=== PATIENT | male | born 1960 | race Caucasian/White ===

== ENCOUNTER 2021-12-16 10:56 | Inpatient (IN) | payer SELFPAY ==
[2021-12-16 11:56] LABS: CHLORIDE,CL 94 mEq/L (98-106); SODIUM,NA 133 mEq/L (136-145)
[2021-12-16 12:07] LABS: ESTIMATED GFR 87 mL/min (>=60)
[2021-12-16] MEDS ORDERED: Iopamidol 755 Mg/ML 100 ML Bottle IVPUSH ONE (13:46)
[2021-12-16] MEDS ORDERED: Barium Sulfate Oral Susp 450 ML Bottle PO ONE (13:47)
[2021-12-16] MEDS ORDERED: Sodium Chloride 0.9% 1,000 ML IV SCH (15:30)
[2021-12-16] MEDS ORDERED: cefTRIAXone 1 GM Vial IVPUSH SCH (16:00)
[2021-12-16] MEDS ORDERED: HYDROmorphone 1 MG/ML Syringe IVPUSH ONE (16:31)
[2021-12-16] MEDS: Nicotine 14 MG/24 Hr Patch TRDERM SCH (16:58)
[2021-12-16] MEDS: Acetaminophen/HYDROcodone 325-5 MG Tab PO PRN (20:08)
[2021-12-16] MEDS ORDERED: Ketorolac 30 MG/ML SDV IVPUSH ONE (21:44)
[2021-12-16] MEDS ORDERED: cefTRIAXone 1 GM Vial IVPUSH ONE (22:05)
[2021-12-17] MEDS ORDERED: Sodium Chloride 0.9% 1,000 ML IV SCH (00:45)
[2021-12-17] MEDS: Acetaminophen/HYDROcodone 325-5 MG Tab PO PRN ×2 (02:42→08:25)
[2021-12-17] MEDS ORDERED: HYDROmorphone 1 MG/ML Syringe IVPUSH ONE (03:25)
[2021-12-17] MEDS ORDERED: HYDROmorphone 1 MG/ML Syringe ONE ×2 (04:08→16:34)
[2021-12-17] MEDS: Nicotine 14 MG/24 Hr Patch TRDERM SCH (08:25)
[2021-12-17] MEDS ORDERED: HYDROmorphone 0.5 MG/0.5 ML Syringe IVPUSH ONE (08:58)
[2021-12-17] MEDS ORDERED: VANCOmycin 1 GM/200 ML 1 GM in Premix Bag 1 BAG IV STA (09:17)
[2021-12-17] MEDS ORDERED: fentaNYL 50 MCG/ML SDV ONE (16:35)
== END 2021-12-17 10:20 | DRG 603 ==
LOC: CC.MS 10:56 → CC.FCMC 10:56 → CC.MS 13:50 → UNDOADMIN 13:50 → CC.MS 16:47 → UNDODISIN 12-17 10:20
PROVIDERS: ADMIT Physician Assistant Medical; ATTEND Family Medicine
DX: L03.113 Cellulitis of right upper limb (principal); R78.81 Bacteremia; I10 Essential (primary) hypertension; E78.5 Hyperlipidemia, unspecified; R63.4 Abnormal weight loss; L03.031 Cellulitis of right toe; R31.9 Hematuria, unspecified; R82.71 Bacteriuria; M10.9 Gout, unspecified; G89.29 Other chronic pain; F17.210 Nicotine dependence, cigarettes, uncomplicated; M54.59 Other low back pain; E86.0 Dehydration; Z20.822 Contact with and (suspected) exposure to COVID-19; Z79.899 Other long term (current) drug therapy; Z90.49 Acquired absence of other specified parts of digestive tract
CPT/HCPCS: 36415; 71260; 74177; 80053; 81001; 84153; 84550; 85025; 85651; 86140; 87040; 87077; 87186; 99223; 99239; A9270-GY; J0696; J1170; J1885; J3370; J7030; Q9967; U0002

== ENCOUNTER 2022-01-11 11:40 | Inpatient (IN) | payer MEDICAID ==
[2022-01-11] MEDS ORDERED: Ondansetron 4 MG Tab.DIS PO PRN (15:30)
[2022-01-11] MEDS ORDERED: Acetaminophen 325 MG Tab PO PRN (15:30)
[2022-01-11] MEDS: Cyclobenzaprine 10 MG Tab PO PRN (16:33)
[2022-01-11] MEDS: oxyCODONE 5 MG Tab PO PRN ×2 (16:37→20:35)
[2022-01-11] MEDS: Calcium Carbonate/Vitamin D3 1250 MG-5 MCG Tab PO SCH (16:46)
[2022-01-11] MEDS: ceFAZolin 1 GM Vial IVPUSH SCH (16:46)
[2022-01-11] MEDS: Carvedilol 12.5 MG Tab PO SCH (16:52)
[2022-01-11] MEDS: ALPRAZolam 0.25 MG Tab PO PRN (16:52)
[2022-01-11] MEDS ORDERED: Simvastatin 20 MG Tab PO SCH (20:00)
[2022-01-11] MEDS: Enoxaparin 40 MG/0.4 ML Syringe SUBCUT SCH (20:29)
[2022-01-12] MEDS: oxyCODONE 5 MG Tab PO PRN ×5 (01:33→23:46)
[2022-01-12] MEDS: ALPRAZolam 0.25 MG Tab PO PRN (01:34)
[2022-01-12] MEDS: ceFAZolin 1 GM Vial IVPUSH SCH ×2 (01:35→08:18)
[2022-01-12] MEDS: Cyclobenzaprine 10 MG Tab PO PRN (05:48)
[2022-01-12] MEDS: Nicotine 21 MG/24 Hr Patch TRDERM SCH (08:14)
[2022-01-12] MEDS: Lisinopril 20 MG Tab PO SCH (08:14)
[2022-01-12] MEDS: Calcium Carbonate/Vitamin D3 1250 MG-5 MCG Tab PO SCH ×2 (08:15→16:54)
[2022-01-12] MEDS: Citalopram 10 MG Tab PO SCH (08:15)
[2022-01-12] MEDS: Cholecalciferol (Vitamin D3) 25 MCG Tab PO SCH (08:16)
[2022-01-12] MEDS: amLODIPine 10 MG Tab PO SCH (08:16)
[2022-01-12] MEDS: Carvedilol 12.5 MG Tab PO SCH ×2 (08:16→17:07)
[2022-01-12] MEDS: Voriconazole 200 MG Tab PO SCH ×2 (11:13→19:58)
[2022-01-12] MEDS: LORazepam 0.5 MG Tab PO SCH ×2 (11:15→18:50)
[2022-01-12] MEDS: ceFAZolin 2 GM Vial IVPUSH SCH ×2 (16:51→23:33)
[2022-01-12] MEDS: Enoxaparin 40 MG/0.4 ML Syringe SUBCUT SCH (19:50)
[2022-01-12] MEDS: atorvaSTATin 20 MG Tab PO SCH (19:51)
[2022-01-13] MEDS: LORazepam 0.5 MG Tab PO SCH ×3 (03:45→18:37)
[2022-01-13] MEDS: Cyclobenzaprine 10 MG Tab PO PRN ×2 (03:52→17:25)
[2022-01-13] MEDS: oxyCODONE 5 MG Tab PO PRN ×2 (07:52→14:55)
[2022-01-13] MEDS: Lisinopril 20 MG Tab PO SCH (07:52)
[2022-01-13] MEDS: Cholecalciferol (Vitamin D3) 25 MCG Tab PO SCH (07:53)
[2022-01-13] MEDS: Carvedilol 12.5 MG Tab PO SCH ×2 (07:53→17:18)
[2022-01-13] MEDS: Calcium Carbonate/Vitamin D3 1250 MG-5 MCG Tab PO SCH ×2 (07:54→17:18)
[2022-01-13] MEDS: Citalopram 10 MG Tab PO SCH (07:55)
[2022-01-13] MEDS: amLODIPine 10 MG Tab PO SCH (07:55)
[2022-01-13] MEDS: ceFAZolin 2 GM Vial IVPUSH SCH ×2 (07:55→16:11)
[2022-01-13] MEDS: Nicotine 21 MG/24 Hr Patch TRDERM SCH (07:57)
[2022-01-13] MEDS: Voriconazole 200 MG Tab PO SCH ×2 (09:22→20:01)
[2022-01-13] MEDS: atorvaSTATin 20 MG Tab PO SCH (19:39)
[2022-01-13] MEDS: Enoxaparin 40 MG/0.4 ML Syringe SUBCUT SCH (19:39)
[2022-01-14] MEDS: ceFAZolin 2 GM Vial IVPUSH SCH ×3 (00:12→16:05)
[2022-01-14] MEDS: LORazepam 0.5 MG Tab PO SCH ×3 (02:33→18:25)
[2022-01-14] MEDS: oxyCODONE 5 MG Tab PO PRN ×5 (02:35→20:03)
[2022-01-14] MEDS: Cyclobenzaprine 10 MG Tab PO PRN ×2 (02:36→20:02)
[2022-01-14] MEDS: Nicotine 21 MG/24 Hr Patch TRDERM SCH (08:05)
[2022-01-14] MEDS: Carvedilol 12.5 MG Tab PO SCH ×2 (08:05→16:52)
[2022-01-14] MEDS: amLODIPine 10 MG Tab PO SCH (08:05)
[2022-01-14] MEDS: Calcium Carbonate/Vitamin D3 1250 MG-5 MCG Tab PO SCH ×2 (08:05→16:52)
[2022-01-14] MEDS: Cholecalciferol (Vitamin D3) 25 MCG Tab PO SCH (08:05)
[2022-01-14] MEDS: Lisinopril 20 MG Tab PO SCH (08:06)
[2022-01-14] MEDS: Citalopram 10 MG Tab PO SCH (08:06)
[2022-01-14] MEDS: Voriconazole 200 MG Tab PO SCH ×2 (08:07→19:41)
[2022-01-14] MEDS: Enoxaparin 40 MG/0.4 ML Syringe SUBCUT SCH (19:38)
[2022-01-14] MEDS: atorvaSTATin 20 MG Tab PO SCH (19:38)
[2022-01-15] MEDS: ceFAZolin 2 GM Vial IVPUSH SCH ×4 (00:02→23:45)
[2022-01-15] MEDS: LORazepam 0.5 MG Tab PO SCH ×3 (03:08→18:54)
[2022-01-15] MEDS: Cyclobenzaprine 10 MG Tab PO PRN ×2 (04:01→19:38)
[2022-01-15] MEDS: oxyCODONE 5 MG Tab PO PRN ×3 (06:26→19:38)
[2022-01-15] MEDS: Citalopram 10 MG Tab PO SCH (07:58)
[2022-01-15] MEDS: Cholecalciferol (Vitamin D3) 25 MCG Tab PO SCH (07:58)
[2022-01-15] MEDS: Nicotine 21 MG/24 Hr Patch TRDERM SCH (07:58)
[2022-01-15] MEDS: Calcium Carbonate/Vitamin D3 1250 MG-5 MCG Tab PO SCH ×2 (07:58→16:32)
[2022-01-15] MEDS: Voriconazole 200 MG Tab PO SCH ×2 (07:59→19:38)
[2022-01-15] MEDS: Lisinopril 20 MG Tab PO SCH (08:03)
[2022-01-15] MEDS: Carvedilol 12.5 MG Tab PO SCH ×2 (08:04→16:31)
[2022-01-15] MEDS: amLODIPine 10 MG Tab PO SCH (08:04)
[2022-01-15] MEDS: Enoxaparin 40 MG/0.4 ML Syringe SUBCUT SCH (19:28)
[2022-01-15] MEDS: atorvaSTATin 20 MG Tab PO SCH (19:28)
[2022-01-16] MEDS: LORazepam 0.5 MG Tab PO SCH (03:15)
[2022-01-16] MEDS: oxyCODONE 5 MG Tab PO PRN ×3 (03:21→19:17)
[2022-01-16] MEDS: ceFAZolin 2 GM Vial IVPUSH SCH ×2 (07:49→16:10)
[2022-01-16] MEDS: Lisinopril 20 MG Tab PO SCH (07:49)
[2022-01-16] MEDS: Carvedilol 12.5 MG Tab PO SCH ×2 (07:50→16:42)
[2022-01-16] MEDS: Citalopram 10 MG Tab PO SCH (07:50)
[2022-01-16] MEDS: Cholecalciferol (Vitamin D3) 25 MCG Tab PO SCH (07:50)
[2022-01-16] MEDS: Calcium Carbonate/Vitamin D3 1250 MG-5 MCG Tab PO SCH ×2 (07:50→16:42)
[2022-01-16] MEDS: amLODIPine 10 MG Tab PO SCH (07:50)
[2022-01-16] MEDS: Nicotine 21 MG/24 Hr Patch TRDERM SCH (07:52)
[2022-01-16] MEDS: Voriconazole 200 MG Tab PO SCH ×2 (08:13→21:34)
[2022-01-16] MEDS ORDERED: LORazepam 0.5 MG Tab PO PRN (08:30)
[2022-01-16] MEDS: Cyclobenzaprine 10 MG Tab PO PRN (16:42)
[2022-01-16] MEDS: Enoxaparin 40 MG/0.4 ML Syringe SUBCUT SCH (19:16)
[2022-01-16] MEDS: atorvaSTATin 20 MG Tab PO SCH (19:17)
[2022-01-17] MEDS: ceFAZolin 2 GM Vial IVPUSH SCH ×4 (00:38→23:46)
[2022-01-17] MEDS: Carvedilol 12.5 MG Tab PO SCH ×2 (08:02→16:57)
[2022-01-17] MEDS: Calcium Carbonate/Vitamin D3 1250 MG-5 MCG Tab PO SCH ×2 (08:02→16:58)
[2022-01-17] MEDS: amLODIPine 10 MG Tab PO SCH (08:03)
[2022-01-17] MEDS: oxyCODONE 5 MG Tab PO PRN ×3 (08:04→19:17)
[2022-01-17] MEDS: Lisinopril 20 MG Tab PO SCH (08:04)
[2022-01-17] MEDS: Cholecalciferol (Vitamin D3) 25 MCG Tab PO SCH (08:04)
[2022-01-17] MEDS: Citalopram 10 MG Tab PO SCH (08:05)
[2022-01-17] MEDS: Nicotine 21 MG/24 Hr Patch TRDERM SCH (08:05)
[2022-01-17] MEDS: Voriconazole 200 MG Tab PO SCH ×2 (08:16→19:54)
[2022-01-17] MEDS: Cyclobenzaprine 10 MG Tab PO PRN (15:28)
[2022-01-17] MEDS: Enoxaparin 40 MG/0.4 ML Syringe SUBCUT SCH (19:49)
[2022-01-17] MEDS: atorvaSTATin 20 MG Tab PO SCH (19:49)
[2022-01-18] MEDS: oxyCODONE 5 MG Tab PO PRN ×2 (06:23→19:42)
[2022-01-18] MEDS: ceFAZolin 2 GM Vial IVPUSH SCH ×3 (07:42→23:06)
[2022-01-18] MEDS: Calcium Carbonate/Vitamin D3 1250 MG-5 MCG Tab PO SCH ×2 (07:43→19:52)
[2022-01-18] MEDS: Carvedilol 12.5 MG Tab PO SCH ×2 (07:43→19:53)
[2022-01-18] MEDS: Nicotine 21 MG/24 Hr Patch TRDERM SCH (07:44)
[2022-01-18] MEDS: amLODIPine 10 MG Tab PO SCH (07:44)
[2022-01-18] MEDS: Citalopram 10 MG Tab PO SCH (07:44)
[2022-01-18] MEDS: Cholecalciferol (Vitamin D3) 25 MCG Tab PO SCH (07:44)
[2022-01-18] MEDS: Lisinopril 20 MG Tab PO SCH (07:44)
[2022-01-18] MEDS: Cyclobenzaprine 10 MG Tab PO PRN ×2 (08:00→19:43)
[2022-01-18] MEDS: Voriconazole 200 MG Tab PO SCH ×2 (09:03→19:42)
[2022-01-18] MEDS: atorvaSTATin 20 MG Tab PO SCH (19:43)
[2022-01-18] MEDS: Enoxaparin 40 MG/0.4 ML Syringe SUBCUT SCH (19:45)
[2022-01-19] MEDS: oxyCODONE 5 MG Tab PO PRN ×5 (04:05→21:52)
[2022-01-19] MEDS: Cyclobenzaprine 10 MG Tab PO PRN ×2 (04:57→14:27)
[2022-01-19] MEDS: Voriconazole 200 MG Tab PO SCH ×2 (07:49→19:09)
[2022-01-19] MEDS: Calcium Carbonate/Vitamin D3 1250 MG-5 MCG Tab PO SCH ×2 (07:49→17:33)
[2022-01-19] MEDS: ceFAZolin 2 GM Vial IVPUSH SCH ×2 (07:49→16:04)
[2022-01-19] MEDS: Nicotine 21 MG/24 Hr Patch TRDERM SCH (07:49)
[2022-01-19] MEDS: Lisinopril 20 MG Tab PO SCH (07:49)
[2022-01-19] MEDS: Carvedilol 12.5 MG Tab PO SCH ×2 (07:50→17:29)
[2022-01-19] MEDS: amLODIPine 10 MG Tab PO SCH (07:50)
[2022-01-19] MEDS: Citalopram 10 MG Tab PO SCH (07:51)
[2022-01-19] MEDS: Cholecalciferol (Vitamin D3) 25 MCG Tab PO SCH (07:52)
[2022-01-19] MEDS ORDERED: Carvedilol 12.5 MG Tab ONE (17:58)
[2022-01-19] MEDS: Enoxaparin 40 MG/0.4 ML Syringe SUBCUT SCH (19:09)
[2022-01-19] MEDS: atorvaSTATin 20 MG Tab PO SCH (19:09)
[2022-01-20] MEDS: ceFAZolin 2 GM Vial IVPUSH SCH ×3 (00:02→16:16)
[2022-01-20] MEDS: oxyCODONE 5 MG Tab PO PRN (03:54)
[2022-01-20] MEDS: Citalopram 10 MG Tab PO SCH (08:05)
[2022-01-20] MEDS: Lisinopril 20 MG Tab PO SCH (08:06)
[2022-01-20] MEDS: Carvedilol 12.5 MG Tab PO SCH ×2 (08:07→16:30)
[2022-01-20] MEDS: Voriconazole 200 MG Tab PO SCH ×2 (08:07→20:16)
[2022-01-20] MEDS: Calcium Carbonate/Vitamin D3 1250 MG-5 MCG Tab PO SCH ×2 (08:08→16:30)
[2022-01-20] MEDS: amLODIPine 10 MG Tab PO SCH (08:08)
[2022-01-20] MEDS: Cholecalciferol (Vitamin D3) 25 MCG Tab PO SCH (08:08)
[2022-01-20] MEDS: Nicotine 21 MG/24 Hr Patch TRDERM SCH (08:09)
[2022-01-20] MEDS ORDERED: Lidocaine 5% 700 MG Patch TRDERM SCH (10:00)
[2022-01-20] MEDS: oxyCODONE ER 10 MG TAB.ER PO SCH ×2 (11:00→21:39)
[2022-01-20] MEDS: Cyclobenzaprine 10 MG Tab PO SCH ×2 (11:01→21:38)
[2022-01-20] MEDS: Gabapentin 100 MG Cap PO SCH ×2 (11:01→21:38)
[2022-01-20] MEDS: Lidocaine 5% 700 MG Patch TRDERM SCH (11:02)
[2022-01-21] MEDS: ceFAZolin 2 GM Vial IVPUSH SCH ×3 (00:06→15:57)
[2022-01-21] MEDS: Nicotine 21 MG/24 Hr Patch TRDERM SCH (07:48)
[2022-01-21] MEDS: Lidocaine 5% 700 MG Patch TRDERM SCH (07:49)
[2022-01-21] MEDS: Cyclobenzaprine 10 MG Tab PO SCH ×2 (07:51→19:40)
[2022-01-21] MEDS: Gabapentin 100 MG Cap PO SCH ×2 (07:52→19:41)
[2022-01-21] MEDS: oxyCODONE ER 10 MG TAB.ER PO SCH ×2 (07:52→19:41)
[2022-01-21] MEDS: Lisinopril 20 MG Tab PO SCH (07:52)
[2022-01-21] MEDS: Calcium Carbonate/Vitamin D3 1250 MG-5 MCG Tab PO SCH ×2 (07:53→17:16)
[2022-01-21] MEDS: Carvedilol 12.5 MG Tab PO SCH ×2 (07:53→17:16)
[2022-01-21] MEDS: amLODIPine 10 MG Tab PO SCH (07:54)
[2022-01-21] MEDS: Voriconazole 200 MG Tab PO SCH ×2 (07:54→19:40)
[2022-01-21] MEDS: Cholecalciferol (Vitamin D3) 25 MCG Tab PO SCH (07:54)
[2022-01-22] MEDS: ceFAZolin 2 GM Vial IVPUSH SCH ×3 (00:43→15:58)
[2022-01-22] MEDS: oxyCODONE ER 10 MG TAB.ER PO SCH ×2 (07:24→19:43)
[2022-01-22] MEDS: Gabapentin 100 MG Cap PO SCH ×2 (07:25→19:43)
[2022-01-22] MEDS: Nicotine 21 MG/24 Hr Patch TRDERM SCH (07:25)
[2022-01-22] MEDS: Lidocaine 5% 700 MG Patch TRDERM SCH (07:26)
[2022-01-22] MEDS: Cyclobenzaprine 10 MG Tab PO SCH ×2 (07:27→19:43)
[2022-01-22] MEDS: Calcium Carbonate/Vitamin D3 1250 MG-5 MCG Tab PO SCH ×2 (07:27→17:12)
[2022-01-22] MEDS: amLODIPine 10 MG Tab PO SCH (07:28)
[2022-01-22] MEDS: Voriconazole 200 MG Tab PO SCH ×2 (07:28→19:43)
[2022-01-22] MEDS: Cholecalciferol (Vitamin D3) 25 MCG Tab PO SCH (07:28)
[2022-01-22] MEDS: Carvedilol 12.5 MG Tab PO SCH ×2 (07:28→17:12)
[2022-01-22] MEDS: Lisinopril 20 MG Tab PO SCH (07:29)
[2022-01-23] MEDS: ceFAZolin 2 GM Vial IVPUSH SCH ×3 (00:08→16:34)
[2022-01-23] MEDS: Nicotine 21 MG/24 Hr Patch TRDERM SCH (07:36)
[2022-01-23] MEDS: Lidocaine 5% 700 MG Patch TRDERM SCH (07:42)
[2022-01-23] MEDS: Carvedilol 12.5 MG Tab PO SCH ×2 (07:43→16:33)
[2022-01-23] MEDS: Voriconazole 200 MG Tab PO SCH ×2 (07:44→19:24)
[2022-01-23] MEDS: Calcium Carbonate/Vitamin D3 1250 MG-5 MCG Tab PO SCH ×2 (07:44→16:33)
[2022-01-23] MEDS: Cyclobenzaprine 10 MG Tab PO SCH ×2 (07:44→19:24)
[2022-01-23] MEDS: Gabapentin 100 MG Cap PO SCH ×2 (07:44→19:24)
[2022-01-23] MEDS: Cholecalciferol (Vitamin D3) 25 MCG Tab PO SCH (07:44)
[2022-01-23] MEDS: Lisinopril 20 MG Tab PO SCH (07:45)
[2022-01-23] MEDS: amLODIPine 10 MG Tab PO SCH (07:45)
[2022-01-23] MEDS: oxyCODONE ER 10 MG TAB.ER PO SCH ×2 (07:45→19:24)
[2022-01-24] MEDS: ceFAZolin 2 GM Vial IVPUSH SCH ×3 (01:43→16:14)
[2022-01-24] MEDS: Lidocaine 5% 700 MG Patch TRDERM SCH (07:55)
[2022-01-24] MEDS: oxyCODONE ER 10 MG TAB.ER PO SCH ×2 (07:56→20:26)
[2022-01-24] MEDS: Voriconazole 200 MG Tab PO SCH ×2 (07:56→20:25)
[2022-01-24] MEDS: Cyclobenzaprine 10 MG Tab PO SCH ×2 (07:56→20:25)
[2022-01-24] MEDS: Cholecalciferol (Vitamin D3) 25 MCG Tab PO SCH (07:56)
[2022-01-24] MEDS: Carvedilol 12.5 MG Tab PO SCH ×2 (07:57→17:28)
[2022-01-24] MEDS: Gabapentin 100 MG Cap PO SCH ×2 (07:57→20:25)
[2022-01-24] MEDS: amLODIPine 10 MG Tab PO SCH (07:57)
[2022-01-24] MEDS: Calcium Carbonate/Vitamin D3 1250 MG-5 MCG Tab PO SCH ×2 (07:57→17:28)
[2022-01-24] MEDS: Lisinopril 20 MG Tab PO SCH (07:57)
[2022-01-24] MEDS: Nicotine 21 MG/24 Hr Patch TRDERM SCH (08:00)
[2022-01-25] MEDS: ceFAZolin 2 GM Vial IVPUSH SCH ×3 (01:47→18:45)
[2022-01-25] MEDS: Lidocaine 5% 700 MG Patch TRDERM SCH (07:32)
[2022-01-25] MEDS: Nicotine 21 MG/24 Hr Patch TRDERM SCH (07:32)
[2022-01-25] MEDS: Cholecalciferol (Vitamin D3) 25 MCG Tab PO SCH (07:34)
[2022-01-25] MEDS: oxyCODONE ER 10 MG TAB.ER PO SCH ×2 (07:34→19:27)
[2022-01-25] MEDS: Voriconazole 200 MG Tab PO SCH ×2 (07:34→19:27)
[2022-01-25] MEDS: amLODIPine 10 MG Tab PO SCH (07:34)
[2022-01-25] MEDS: Lisinopril 20 MG Tab PO SCH (07:34)
[2022-01-25] MEDS: Gabapentin 100 MG Cap PO SCH ×2 (07:34→19:26)
[2022-01-25] MEDS: Cyclobenzaprine 10 MG Tab PO SCH ×2 (07:35→19:26)
[2022-01-25] MEDS: Calcium Carbonate/Vitamin D3 1250 MG-5 MCG Tab PO SCH ×2 (07:35→18:51)
[2022-01-25] MEDS: Carvedilol 12.5 MG Tab PO SCH ×2 (07:35→18:51)
[2022-01-26] MEDS: ceFAZolin 2 GM Vial IVPUSH SCH ×3 (00:45→16:04)
[2022-01-26] MEDS: oxyCODONE ER 10 MG TAB.ER PO SCH ×2 (07:44→19:55)
[2022-01-26] MEDS: Carvedilol 12.5 MG Tab PO SCH ×2 (07:44→17:20)
[2022-01-26] MEDS: Lisinopril 20 MG Tab PO SCH (07:44)
[2022-01-26] MEDS: Voriconazole 200 MG Tab PO SCH ×2 (07:44→19:56)
[2022-01-26] MEDS: Cholecalciferol (Vitamin D3) 25 MCG Tab PO SCH (07:45)
[2022-01-26] MEDS: Gabapentin 100 MG Cap PO SCH ×2 (07:45→19:56)
[2022-01-26] MEDS: Calcium Carbonate/Vitamin D3 1250 MG-5 MCG Tab PO SCH ×2 (07:45→17:20)
[2022-01-26] MEDS: amLODIPine 10 MG Tab PO SCH (07:45)
[2022-01-26] MEDS: Cyclobenzaprine 10 MG Tab PO SCH ×2 (07:45→20:00)
[2022-01-26] MEDS: Lidocaine 5% 700 MG Patch TRDERM SCH (07:46)
[2022-01-26] MEDS: Nicotine 21 MG/24 Hr Patch TRDERM SCH (07:46)
== END 2022-01-26 20:32 | disposition home or self-care (01) | DRG 872 ==
LOC: CC.MS 13:35 → UNDOADMIN 13:35 → CC.MS 15:25
PROVIDERS: ADMIT Physician Assistant Medical; ATTEND Nurse Practitioner Family
DX: A41.01 Sepsis due to Methicillin susceptible Staphylococcus aureus (principal); L02.11 Cutaneous abscess of neck; L02.511 Cutaneous abscess of right hand; L02.611 Cutaneous abscess of right foot; Z98.890 Other specified postprocedural states; Z79.899 Other long term (current) drug therapy; G89.29 Other chronic pain; M54.9 Dorsalgia, unspecified; Z90.49 Acquired absence of other specified parts of digestive tract; W19.XXXA Unspecified fall, initial encounter
CPT/HCPCS: 36415; 74176; 81001; 82565; 84450; 85025; 85651; 85652; 97022-GP; 97110-GP; 97161-GP; 97530-GP; 99306; 99307; 99316; A9270-GY; J0690; J1642; J1650